=== PATIENT | female | born 1970 | race African-American/Black ===

== ENCOUNTER → 2019-06-17 | Outpatient (CLI) | payer BC ==
--- NOTE | 2019-06-17 11:45 | RAD ---
Transabdominal and transvaginal sonography of the pelvis Clinical indications: Acute vaginitis. Abnormal uterine bleeding. Transabdominal sonography: Uterus is anteverted in position. The endometrial canal is poorly visualized. Therefore, transvaginal sonography will be performed. No adnexal masses or free fluid is evident. Transvaginal sonography: The longitudinal and AP and transverse dimensions of the uterus are 10.6 cm and 6.7 cm and 7.3 cm respectively. The endometrial canal measures 9 mm in thickness. There is an anterior fundal uterine fibroid measuring 4 cm in greatest dimension. Nabothian cysts of the cervix are seen. The right ovary measures 2.2 cm and 2.3 cm and 3.0 cm in size. Right ovary is normal and color Doppler flow is seen within the right ovary. The left ovary measures 2.7 cm and 1.5 cm and 2.5 cm in size and is normal. Color Doppler flow is seen within the left ovary. No adnexal mass or free fluid is evident. IMPRESSION: 4 cm uterine fibroid. Mild thickening of the endometrial canal measuring 9 mm. This is abnormal for postmenopausal patient but is within normal limits for premenopausal patient. Correlation with menstrual history is needed. Electronically signed by: Marcelo Varner MD (06/17/2019 11:42 AM) [id number]
== END | disposition home or self-care (01) ==
LOC: US 09:38
PROVIDERS: ATTEND Obstetrics & Gynecology
DX: N88.8 Other specified noninflammatory disorders of cervix uteri (principal); D25.9 Leiomyoma of uterus, unspecified; N93.9 Abnormal uterine and vaginal bleeding, unspecified; Z78.0 Asymptomatic menopausal state
CPT/HCPCS: 76830; 76856

== ENCOUNTER → 2019-08-27 | Outpatient (CLI) | payer BC ==
--- NOTE | 2019-08-27 14:01 | RAD ---
DATE: August 27, 2019 EXAM: DIGITAL DIAGNOSTIC BILATERAL, BREAST LEFT sonography HISTORY: Left breast pain. No lump. COMPARISON: None available. This study was interpreted with the benefit of Computerized Aided Detection (CAD). 2-D digital mammographic views of both breasts were performed in the CC and MLO projections. 3-D digital tomosynthesis images of both breasts were performed in the CC and MLO projections and reviewed on a computer workstation. FINDINGS: Breast Density: SCATTERED The breast parenchyma shows scattered fibroglandular densities. Breast parenchyma level B.. There are no dominant suspicious masses, suspicious microcalcifications or evidence of architectural distortion. No focal mammographic abnormality is seen in the area of pain of the left breast as indicated by the BB. LEFT BREAST SONOGRAPHY high-resolution sonography of the area of pain as indicated by the patient at the 10:00 position 14 cm from the nipple was performed. In this area, there is a small complex hypoechoic nodule measuring 3 mm in greatest dimension. Thin echogenic capsule is seen around it and there is mild some through-transmission. No internal color Doppler flow is seen. This most likely is a small complex cyst. IMPRESSION: No mammographic indicators for malignancy. Probable small complex cyst of the 10:00 position of the left breast seen sonographically. Therefore, recommend a 6 month follow-up sonogram to ensure stability. BI-RADS CATEGORY: 3 PROBABLE BENIGN-SHORT TERM F/U RECOMMENDED FOLLOW-UP: 6M 6 MONTH FOLLOW-UP PQRS compliance statement: Patient information was entered into a reminder system with a target due date February 26, 2020 for the next mammogram. Mammography is a sensitive method for finding small breast cancers, but it does not detect them all and is not a substitute for careful clinical examination. A negative mammogram does not negate a clinically suspicious finding and should not result in delay in biopsying a clinically suspicious abnormality. "Our facility is accredited by the [employer] Mammography [employer]." The patient's breast density may affect the ability of mammography to detect breast cancer. There are 4 categories of breast density, A, B, C and D. Breast density A means that most of the breast tissue is replaced with adipose tissue and therefore is not dense. Breast density B means that the breast tissue is mildly dense and scattered. Breast density C means that the breast tissue is heterogeneously dense. Breast density D means that the breast tissue is very dense. Breast densities especially C and D may decrease the sensitivity of mammography to detect breast cancer. Therefore, the patient may benefit from 3-D breast mammography (3D breast tomography) as a part of their screening mammogram. Insurance may or may not pay for this additional imaging. The patient's breast density based on today's mammogram is category B.
== END ==
LOC: MAMMO 12:45
PROVIDERS: ATTEND Family Medicine
DX: N63.21 Unspecified lump in the left breast, upper outer quadrant (principal)
CPT/HCPCS: 76641; 77066

== ENCOUNTER → 2020-02-26 | Outpatient (CLI) | payer BC ==
--- NOTE | 2020-02-26 11:17 | RAD ---
DATE: 02/26/2020 10:27 AM EXAM: BREAST ULTRASOUND LEFT HISTORY: Six-month follow-up probably benign mass in the upper inner left breast seen on prior breast ultrasound. No reported mammographic correlate. She was imaged at baseline for focal breast pain upper inner left breast. COMPARISON: Bilateral digital diagnostic mammogram of 08/27/2019 with 2-D and 3-D technique, and left breast ultrasound of that same day FINDINGS: Targeted ultrasound of the left breast in the area of sonographic interest at the 10:00 position 14 cm from the nipple reveals a round, circumscribed hypoechoic mass with no internal vascularity measuring 3 mm in diameter, not significantly changed from the previous exam IMPRESSION: Probably benign 3 mm oil cyst in the subcutaneous fat of the upper inner left breast. Recommend six-month follow-up left breast ultrasound, to be performed at the time she is due for bilateral screening mammography. Currently, an oil cyst from noncalcified fat necrosis is favored but if the lesion persists on ultrasound without developing typical benign findings on follow up imaging, it should be considered for biopsy if it persists with a round shape. BI-RADS CATEGORY: 3 PROBABLY BENIGN FINDING(S)-SHORT INTERVAL FOLLOW-UP SUGGESTED RECOMMENDED FOLLOW-UP: 6M 6 MONTH FOLLOW-UP Annual bilateral mammography is recommended, unless clinically indicated sooner based on symptoms or change in physical exam. The six-month follow-up left breast ultrasound should be performed at the same time of the bilateral diagnostic mammogram (which would've been a screening examination in the absence of the need to follow-up this finding).
== END | disposition home or self-care (01) ==
LOC: MAMMO 10:19
PROVIDERS: ATTEND Family Medicine
DX: N63.22 Unspecified lump in the left breast, upper inner quadrant (principal); N60.02 Solitary cyst of left breast; N64.9 Disorder of breast, unspecified
CPT/HCPCS: 76641

== ENCOUNTER → 2020-09-09 | Outpatient (CLI) | payer BC ==
--- NOTE | 2020-09-10 15:45 | RAD ---
Examination: US BREAST LT, MG DIGITAL BILAT DIAGNOSTIC MAMMO WITH EDMUND History: Pain. Follow-up of an abnormal finding. Comparison/Correlation: 08/27/2019 bilateral diagnostic mammogram and left breast ultrasound Technique: Bilateral digital diagnostic mammogram views were obtained. CAD was utilized. 3-D tomosyn thesis images were acquired. Findings: Breast Tissue Density B : There are scattered areas of fibroglandular density. There are no dominant masses, suspicious microcalcifications, or architectural distortion. Note is m sarath of multiple bilateral axillary lymph nodes which are new in the interval but not enlarged. Ultrasound imaging of the left upper-outer breast were reported pain is present was performed. Ultras ound imaging of the left axilla was also performed. Benign-appearing left axillary lymph nodes are pr esent. There is no associated imaging findings at the reported site of the left upper-outer breast wh ere a palpable abnormality and pain are reported. No palpable abnormality upon physical examination b y myself at the site of concern reported by the patient. Previously seen left breast 10:00 lesion 14 cm from nipple is not currently identified. IMPRESSION: No mammographic evidence of malignancy. Recommend routine screening. Multiple bilateral axillary lymp h nodes are new since the previous exam although without suspicious characteristics. BI-RADS category 1: Negative. Bilateral axillary lymph nodes are multiple and without suspicious characteristics. This may represen t inflammatory process or other nonspecific benign process. Correlate clinically in determining the n eed for further clinical assessment if more significant etiologies are of concern. The images were reviewed with computer aided detection. Patient information is entered into the reminder system with a target due date for the next screening mammogram. Mammography is the most sensitive method for finding small breast cancers, but it does not detect the m all and is not a substitute for careful clinical examination. A negative mammogram does not negate a clinically suspicious finding and should not result in delay in biopsying a clinically suspicious a bnormality. "Our facility is accredited by the [employer] Mammography Program." Electronically signed by: Fred Swanson MD (09/10/2020 3:42 PM) [email or web address]
== END ==
LOC: MAMMO 09:31
PROVIDERS: ATTEND Family Medicine
DX: R92.2 Inconclusive mammogram (principal); N63.20 Unspecified lump in the left breast, unspecified quadrant; N63.10 Unspecified lump in the right breast, unspecified quadrant
CPT/HCPCS: 76641; 77066; G0279; 77062

== ENCOUNTER → 2021-09-21 | Outpatient (CLI) | payer BC ==
--- NOTE | 2021-09-21 16:35 | RAD ---
EXAM: Bilateral digital screening mammogram with tomosynthesis. HISTORY: 51-year-old female presents for screening mammography. TECHNIQUE: Full-field digital craniocaudal and mediolateral oblique 2D and 3D tomosynthesis images of both breasts are obtained for evaluation. Computer aided detection was applied. COMPARISON: 09/09/2020 BREAST PARENCHYMAL DENSITY: Level B - Scattered fibroglandular densities. FINDINGS: There is no new suspicious mass, microcalcification or region of architectural distortion. IMPRESSION: BI-RADS Category 2: Benign finding(s). RECOMMENDATION: Annual mammography is recommended. If your mammogram demonstrates that you have dense breast tissue, which could hide abnormalities, and if you have other risk factors for breast cancer that have been identified, you might benefit from s upplemental screening tests that may be suggested by your ordering physician. Dense breast tissue, i n and of itself, is a relatively common condition. This information is not provided to cause undue c oncern, but rather to raise your awareness and to promote discussion with your physician regarding th e presence of other risk factors, in addition to dense breast tissue. A report of your mammography re sults will be sent to you and your physician. You should contact your physician if you have any ques tions or concerns regarding this report. Mammography is a sensitive method for finding small breast cancers, but it does not detect them all a nd is not a substitute for careful clinical examination. A negative mammogram does not negate a clin ically suspicious finding and should not result in delay in biopsying a clinically suspicious abnorma lity. PQRS compliance statement - Patient information was entered into a reminder system with a target due date for the next mammogram. "Our facility is accredited by the [employer] Mammography [employer]." Electronically signed by: Jyoti Morgan MD (09/21/2021 4:33 PM) [id number]
== END ==
LOC: MAMMO 14:43
PROVIDERS: ATTEND Family Medicine
DX: Z12.31 Encounter for screening mammogram for malignant neoplasm of breast (principal)
CPT/HCPCS: 77063; 77067